=== PATIENT | female | born 1975 | race Caucasian/White ===

== ENCOUNTER 2019-09-24 13:31 | Outpatient (CLI) | payer OTHER, SELFPAY ==
--- NOTE | 2019-09-24 13:30 | CT_ITS ---
WS: [id number] CTA NECK TECHNIQUE: Contrast enhanced CTA of the neck with coronal and sagittal reformatted images and maximum intensity projection (MIP) images. NASCET criteria utilized. CLINICAL INFORMATION: Abnormal carotid duplex, headaches, visual disturbance COMPARISON: None. DLP: 843.[address] scans at [facility] use at least one of these dose optimization techniques: automat ed exposure control; mA and/or kV adjustment per patient size (includes targeted exams where dose is matched to clinical indication); or iterative reconstruction. FINDINGS: RIGHT: Right common carotid artery is patent. No significant ICA stenosis. ICA is patent to the skull base. LEFT: Left common carotid artery is patent. No significant left ICA stenosis. Left ICA is patent to t he skull base. Tiny amount of calcified atheromatous plaque left carotid bulb without significant dar nosis. Left dominant vertebral artery. Tiny hypoplastic right vertebral artery. Both vertebral arteries are patent to the skull base. Proximal basilar artery is normal in appearance. Cavernous carotid arteries are patent. Proximal [place] appears unremarkable. Lung apices ar e normal. Partially visualized aortic arch appears normal. Mastoid air cells are well aerated. Paranasal sinuses are well aerated. Normal cervical alignment. CT/CT angio neck [id number] IMPRESSION: 1. Both common carotid arteries and internal carotid arteries are patent. No s ignificant ICA stenosis. Both ICAs are patent to the skull base. 2. Left dominant vertebral artery. Tiny hypoplastic right vertebral artery rem ains patent to the skull base. Proximal basilar artery is patent. 3. Proximal intracranial k[place] appears normal. 4. No other significant findings.
[2019-09-24] MEDS: iohexol 350 mg/mL 100 mL Btl IV (14:18)
== END 2019-09-24 13:32 | disposition home or self-care (01) ==
LOC: RADWPI 13:37
PROVIDERS: PCP Nurse Practitioner; Visit Provider Internal Medicine Cardiovascular Disease
DX: R94.39 Abnormal result of other cardiovascular function study (principal); Q27.8 Other specified congenital malformations of peripheral vascular system; H53.9 Unspecified visual disturbance
CPT/HCPCS: 70498; Q9967

== ENCOUNTER 2020-02-15 13:31 | Outpatient (CLI) | payer SELFPAY ==
--- NOTE | 2020-02-15 13:35 | MR_ITS ---
WS: [id number] MRI HEAD WITHOUT CONTRAST TECHNIQUE: Sagittal T1, T2 axial, T2 axial FLAIR, axial and coronal T1 images, axial susceptibility w eighted imaging, axial diffusion weighted images, and coronal T2 images were obtained. CLINICAL INFORMATION: BLINDNESS RIGHT EYE CAT 3;NORMAL VISION LEFT EYE;HEADACHE COMPARISON: None. FINDINGS: No evidence of restricted diffusion to suggest acute ischemia. Ventricular system and basal cisterns are patent. A few small foci of T2 hyperintensity in the supratentorial white matter can be seen with hypertension, diabetes, and migraine headaches. No other suspicious intracranial signal abnormalitie s. Normal posterior fossa. Normal vascular flow voids at the skull base. No extra-axial fluid collect ions. No evidence of mass or mass effect. Mild mucosal thickening in the paranasal sinuses. Mastoid a ir cells are well aerated. No hemosiderin on the susceptibly weighted images. Temporal lobes and hippocampal formations are norm al in appearance. Normal optic chiasm and pituitary infundibulum. Normal sella. MR/MR head wo con* [id number] IMPRESSION: 1. No evidence of restricted diffusion to suggest acute ischemia. 2. A few tiny foci of T2 hyperintensity in the supratentorial white matter non specific but can be seen with hypertension, diabetes, and migraine headaches. 3. No other suspicious intracranial signal abnormalities. 4. Mild mucosal thickening paranasal sinuses. 5. No other significant findings.
== END 2020-02-15 13:32 | disposition home or self-care (01) ==
LOC: RADSHAW 13:33
PROVIDERS: PCP Nurse Practitioner; Visit Provider Psychiatry & Neurology Neurology
DX: R51.9 Headache, unspecified (principal); H54.413A Blindness right eye category 3, normal vision left eye
CPT/HCPCS: 70551

== ENCOUNTER 2020-06-21 09:18 | Emergency (ER) | payer OTHER, SELFPAY ==
[2020-06-21 09:26] VITALS: BP 157/91; PULSE 70; RESP 18; TEMP 36.6; O2SAT 96; BMI 33.6
--- NOTE | 2020-06-21 09:41 | W.ED.GENADLT ---
HPI - General Adult General: Chief complaint: General Medical Stated complaint: High BP Time Seen by Provider: 06/21/20 09:27 History of Present Illness: HPI narrative: 45-year-old female comes in complaining of her blood pressure. She checks her blood pressure at home with a machine she also checks it with a cuff and a stethoscope on herself. She states her blood pressure is been elevated with systolic pressures in the 160s and above and diastolic pressures in the 90s and 100s. She was previously on lisinopril hydrochlorothiazide they took her off of hydrochlorothiazide and then eventually switch her from lisinopril to a beta-tal she did not tolerate that well so she was treated changed to the losartan. She denies any chest pain or shortness of breath she does feel like her face and hands been swollen. States her primary care doctor is done some testing and related to her that she may have alpha gal antibody. Onset (ago): week(s) Location: head Severity: moderate Quality: dull Pain Consistency: intermittent Relieving factors: none Exacerbating factors: none Associated symptoms: Deny chest pain, confusion, cough, diaphoresis, decreased appetite, dyspnea, fevers/chills, headache(s), malaise, nausea, rash, palpitations, seizures, syncope, vomiting, weakness or other Review of Systems Const: Denies: malaise or diaphoresis ENMT: Denies: throat pain, ear or mastoid pain, nasal discharge or nasal congestion Card: Denies: chest pain, palpitations or syncope Resp: Denies: dyspnea GI: Denies: nausea or vomiting : Denies: flank pain, difficulty voiding, dysuria, urinary frequency or urinary urgency Skin/Breast: Denies: rash Neuro: Denies: headache(s) or confusion PFSH ED PFSH: Medical History Abnormal carotid duplex scan Chronic headaches Dizziness Essential hypertension Glucose intolerance Tobacco abuse Family History Father Diabetes CAD (coronary artery disease) Mother Cancer RENAL CELL Social History Smoking and tobacco status: current every day smoker cigarettes Packs smoked per day: 0.5 Alcohol intake: current Alcohol intake frequency: holidays/special occasions only Household members: spouse Marital status: service: No Current occupational status: unemployed Female Reproductive History: Date of last menstrual period: 06/14/20 Physical Exam Const: COMMON NORMALS: no acute distress GENERAL APPEARANCE: cooperative and comfortable ORIENTATION/CONSCIOUSNESS: Yes awake, Yes oriented to person, Yes oriented to place and Yes oriented to time HENMT: COMMON NORMALS: normocephalic, atraumatic and hearing grossly normal bilaterally HEAD & SCALP: normocephalic and atraumatic Eye: COMMON NORMALS: Equal, round and reactive pupils present, EOMs intact bilaterally, conjunctivae normal and no scleral icterus CONJUNCTIVA: Yes conjunctivae normal PUPIL: Yes Equal, round and reactive pupils present Neck/C-Spine: COMMON NORMALS: no JVD Resp: COMMON NORMALS: normal respiratory effort, No retractions, No use of accessory muscles and clear to auscultation bilaterally AUSCULTATION: clear to auscultation bilaterally Cardio: COMMON NORMALS: no JVD, regular rate, regular rhythm and No murmurs present (Cardio) RATE: regular rate RHYTHM: regular rhythm GI: COMMON NORMALS: Soft to palpation and No hepatosplenomegaly present AUSCULTATION: Yes normoactive bowel sounds PALPATION: Yes Soft to palpation, No Tenderness to palpation present (GI), No Guarding due to palpation present (GI) and Yes No hepatosplenomegaly present Extremity: COMMON NORMALS: normal to inspection, capillary refill normal, no clubbing, cyanosis or edema, no calf tenderness and no pedal edema Neuro: SENSORIUM/ORIENTATION: Yes oriented to person, Yes oriented to place and Yes oriented to time Skin: COMMON NORMALS: no rashes or lesions noted GENERAL SKIN EXAM: no rashes or lesions noted Course Vital Signs: Vital signs: Vital Signs Temperature 97.9 F 06/21/20 09:26 Pulse Rate 73 06/21/20 11:18 Respiratory Rate 18 06/21/20 11:18 Blood Pressure 160/89 06/21/20 11:18 Pulse Oximetry 98 06/21/20 11:18 MDM - General Adult MDM Narrative: Medical decision making narrative: While the patient was in the emergency room her personal physician called and started on carvedilol in addition to the losartan.. Her blood pressure is improved by that time. I recommended due to her that she was mildly and struck since of her personal physician at this point. Keep a good blood pressure log. Recommend against trying to check her own blood pressure of the stethoscope and sphygmomanometer is at home believe that will be very accurate. She should get her home blood pressure monitor calibrated to make sure the readings were getting are accurate she can bring it to her next doctor's appointment and they can verify its accuracy. Follow-up with your primary care doctor within the next few days. Lab Data: Labs: Lab Results 06/21/20 06/21/20 06/21/20 Range/Units 09:49 09:49 09:49 WBC 6.1 (4.0-10.0) 10^3/ uL RBC 4.31 (4.1-5.3) 10^6/u L Hgb 12.7 (11.5-15.3) g/dL Hct 37.1 (37.0-47.0) % MCV 86.1 (81-99) fL MCH 29.5 (28.0-34.0) pg MCHC 34.2 (30.0-36.0) g/dL RDW 12.2 (12.1-15.1) % Plt Count 211 (130-400) 10^3/c mm MPV 9.8 (7.4-10.4) fL Neut % (Auto) 53.4 % Lymph % (Auto) 36.7 % [place] % (Auto) 7.0 % Eos % (Auto) 2.1 % Baso % (Auto) 0.5 % Neut # (Auto) 3.25 (1.8-7.7) 10^3/u L Lymph # (Auto) 2.2 (0.8-4.8) 10^3/u L [place] # (Auto) 0.4 (0.2-0.9) 10^3/u L Eos # (Auto) 0.1 (0.0-0.8) 10^3/u L Baso # (Auto) 0.0 (0.0-0.1) 10^3/u L Nucleated RBC % (a uto) 0 % Nucleated RBCs # 0.0 /100WBC Sodium 139 (136-145) mmol/L Potassium 3.9 (3.5-5.1) mmol/L Chloride 106 (98-107) mmol/L Carbon Dioxide 22 (22-29) mmol/L Anion Gap 14.9 (5-19) BUN 9 (6-20) mg/dL Creatinine 0.7 (0.5-0.9) mg/dL GFR Calculation 91.3 (90-130) mL/min Glucose 106 (65-115) mg/dL Calculated Osmolal ity 287 (285-295) mOsm/k g Calcium 9.5 (8.5-10.5) mg/dL Magnesium 2.0 (1.7-2.3) mg/dL Total Bilirubin 0.2 (0.15-1.2) mg/dL AST 15 (0-32) U/L ALT 20 (0-33) U/L Alkaline Phosphata se 59 (35-105) IU/L Troponin T Baselin e 6 (0-10) ng/L Total Protein 6.9 (6.6-8.7) g/dL Albumin 4.3 (3.5-5.2) g/dL Globulin 2.6 (1.3-4.6) g/dL Urine Color (Yellow) Urine Appearance (CLEAR) Urine pH (5-7) Ur Specific Gravit y (1.005-1.030) Urine Protein (Negative) Urine Glucose (UA) (Normal) Urine Ketones (Negative) Urine Blood (Negative) Urine Nitrate (Negative) Urine Bilirubin (Negative) Urine Urobilinogen (Negative) mg/dL Ur Leukocyte Laly ase (Negative) 06/21/20 Range/Units 10:03 WBC (4.0-10.0) 10^3/ uL RBC (4.1-5.3) 10^6/u L Hgb (11.5-15.3) g/dL Hct (37.0-47.0) % MCV (81-99) fL MCH (28.0-34.0) pg MCHC (30.0-36.0) g/dL RDW (12.1-15.1) % Plt Count (130-400) 10^3/c mm MPV (7.4-10.4) fL Neut % (Auto) % Lymph % (Auto) % [place] % (Auto) % Eos % (Auto) % Baso % (Auto) % Neut # (Auto) (1.8-7.7) 10^3/u L Lymph # (Auto) (0.8-4.8) 10^3/u L [place] # (Auto) (0.2-0.9) 10^3/u L Eos # (Auto) (0.0-0.8) 10^3/u L Baso # (Auto) (0.0-0.1) 10^3/u L Nucleated RBC % (a uto) % Nucleated RBCs # /100WBC Sodium (136-145) mmol/L Potassium (3.5-5.1) mmol/L Chloride (98-107) mmol/L Carbon Dioxide (22-29) mmol/L Anion Gap (5-19) BUN (6-20) mg/dL Creatinine (0.5-0.9) mg/dL GFR Calculation (90-130) mL/min Glucose (65-115) mg/dL Calculated Osmolal ity (285-295) mOsm/k g Calcium (8.5-10.5) mg/dL Magnesium (1.7-2.3) mg/dL Total Bilirubin (0.15-1.2) mg/dL AST (0-32) U/L ALT (0-33) U/L Alkaline Phosphata se (35-105) IU/L Troponin T Baselin e (0-10) ng/L Total Protein (6.6-8.7) g/dL Albumin (3.5-5.2) g/dL Globulin (1.3-4.6) g/dL Urine Color Straw (Yellow) Urine Appearance Clear (CLEAR) Urine pH 6 (5-7) Ur Specific Gravit y 1.015 (1.005-1.030) Urine Protein Neg (Negative) Urine Glucose (UA) Norm (Normal) Urine Ketones Negative (Negative) Urine Blood Neg (Negative) Urine Nitrate Negative (Negative) Urine Bilirubin Neg (Negative) Urine Urobilinogen Norm (Negative) mg/dL Ur Leukocyte Laly ase Negative (Negative) Discharge Plan Discharge Patient Disposition: Home Clinical Impression: Essential hypertension Condition: Stable Prescriptions: No Action aspirin [Aspir-81] 81 mg tablet,delayed release (DR/EC) 81 mg PO DAILY RF: 0 hydrochlorothiazide 12.5 mg tablet 12.5 mg PO DAILY Qty: 30 RF: 3 lisinopril 10 mg tablet 10 mg PO DAILY RF: 0 Discharge Orders: Discharge ED (Routine); Ordered 06/21/20 Ordered By: Justin Clay Referrals: Trevon Alfaro FNP [Primary Care Provider] - Discharge Diet: Usual diet Discharge Activity: Increase activity as tolerated Activity Restrictions/Additional Instructions: Start the blood pressure medicine your primary care doctor called in for you today while you are in the emergency room. Follow-up with your primary care doctor with your blood pressure logs in the next 3 to 4 days. Return if you have further problems. Coding Level of Care Code ED [employer] for Joselito Cordova
--- NOTE | 2020-06-21 09:44 | ECG_ITS ---
[facility] Test Date: 2020-06-21 Pat Name: Karen Melendez Department: Room: Gender: Female [employer]: : 1975 Requested By: Justin Ratliff Order Number: [id number] El MD: Eb Dykse M.D. Measurements Intervals [place] Rate: 68 P: 55 [place]: 150 QRS: -28 QRSD: 91 T: 52 QT: 412 QTc: 440 Interpretive Statements SINUS RHYTHM INCOMPLETE RIGHT BUNDLE BRANCH BLOCK [90+ ms QRS DURATION, TERMINAL R IN V1/V2, 40+ ms S IN I/aVL/V4/V5/V6] SEPTAL MYOCARDIAL INFARCTION , OF INDETERMINATE AGE [40+ ms Q WAVE IN V1/V2] No previous ECG available for comparison Electronically Signed On 06-21-2020 19:51:00 DERMATOPATHOLOGIST by Eb Dykes M.D. [email or web address]
[2020-06-21 10:00] LABS: Basophils % 0.5 %; Eosinophils # 0.1 10^3/uL (0.0-0.8); Eosinophils % 2.1 %; Hematocrit 37.1 % (37.0-47.0); Hemoglobin 12.7 g/dL (11.5-15.3); Lymphocytes # 2.2 10^3/uL (0.8-4.8); Lymphocytes % 36.7 %; Mean Corpuscular HGB Conc 34.2 g/dL (30.0-36.0); Mean Corpuscular Hemoglobin 29.5 pg (28.0-34.0); Mean Corpuscular Volume 86.1 fL (81-99); Mean Platelet Volume 9.8 fL (7.4-10.4); Monocytes # 0.4 10^3/uL (0.2-0.9); Neutrophils # 3.25 10^3/uL (1.8-7.7); Neutrophils % 53.4 %; Nucleated Red Blood Cells % 0 %; Platelet Count 211 10^3/cmm (130-400); Red Blood Count 4.31 10^6/uL (4.1-5.3); Red Cell Distribution Width 12.2 % (12.1-15.1); White Blood Count 6.1 10^3/uL (4.0-10.0)
[2020-06-21 10:25] LABS: Troponin(5th) Baseline 6 ng/L (0-10)
[2020-06-21 10:41] LABS: Alanine Aminotransferase 20 U/L (0-33); Albumin Level 4.3 g/dL (3.5-5.2); Alkaline Phosphatase 59 IU/L (35-105); Anion Gap 14.9 (5-19); Aspartate Amino Transferase 15 U/L (0-32); Blood Urea Nitrogen 9 mg/dL (6-20); Calcium 9.5 mg/dL (8.5-10.5); Carbon Dioxide 22 mmol/L (22-29); Chloride 106 mmol/L (98-107); Globulin 2.6 g/dL (1.3-4.6); Glomerular Filtration Rate 91.3 mL/min (90-130); Glucose 106 mg/dL (65-115); Osmolality Calculated 287 mOsm/kg (285-295); Potassium 3.9 mmol/L (3.5-5.1); Sodium 139 mmol/L (136-145); Total Bilirubin 0.2 mg/dL (0.15-1.2); Total Protein 6.9 g/dL (6.6-8.7)
[2020-06-21 11:11] VITALS: BP 147/106; PULSE 74; RESP 18; O2SAT 97
[2020-06-21 11:16] LABS: Add Urine Microscopic? NO
[2020-06-21 11:18] VITALS: BP 160/89; PULSE 73; RESP 18; O2SAT 98
[2020-06-21 11:23] LABS: Bilirubin Urine Neg (Negative); Blood Urine Neg (Negative); Glucose Urine UA Norm (Normal); Ketones Urine Negative (Negative); Leukocyte Esterase Urine Negative (Negative); Nitrate Urine Negative (Negative); Protein Urine Neg (Negative); Specific Gravity, Urine 1.015 (1.005-1.030); Urine Appearance Clear (CLEAR); Urine Color Straw (Yellow); Urobilinogen Urine Norm (Negative); pH Urine 6 (5-7)
== END 2020-06-21 11:21 | disposition home or self-care (01) ==
PROVIDERS: Emergency Provider Family Medicine; PCP Nurse Practitioner
DX: I10 Essential (primary) hypertension (principal); Z79.82 Long term (current) use of aspirin; F17.210 Nicotine dependence, cigarettes, uncomplicated
CPT/HCPCS: 12345; 80053; 81003; 83735; 84484; 85025; 93005; 99282; 99283

== ENCOUNTER → 2020-11-25 07:31 | Outpatient (BNVA) | payer OTHER, SELFPAY | PROVIDERS: PCP Nurse Practitioner; Visit Provider Emergency Medicine | DX: Z20.822 Contact with and (suspected) exposure to COVID-19 (principal) | CPT/HCPCS: 87635 ==